=== PATIENT | male | born 1955 | race Caucasian/White ===

== ENCOUNTER 2018-04-22 10:48 | Emergency (ER) | payer BC ==
[2018-04-22 11:18] VITALS: BP 192/88
[2018-04-22] MEDS ORDERED: Acetaminophen TAB* 325 MG PO ONE (11:23)
--- NOTE | 2018-04-22 11:29 | UC ---
Truncal Trauma HPI - HPI Summary HPI Summary: patient was carrying metal pipe, slipped on the ice and landed on his back on the pipes. he has pain along the postierior right ribs. states he is not peeing blood or coughing up blood like he did with his last fall. hx of multiple rib fractures in the past. ihe did take an aleve at time of incident. appears to be in pain. - History Of Current Complaint Chief Complaint: UCBackPain Stated Complaint: S/P FALL-LOWER BACK PAIN Time Seen by Provider: 04/22/18 11:19 Hx Obtained From: Patient Onset/Duration: Sudden Onset, Lasting Hours Onset Of Pain: Immediate Severity Initially: Moderate Severity Currently: Moderate Pain Intensity: 5 Mechanism Of Injury: Fall From A Standing Position, Twisted Aggravating Factor(s): Nothing Alleviating factor(s): Nothing - Allergies/Home Medications Allergies/Adverse Reactions: Allergies Allergy/AdvReac Type Severity Reaction Status Date / Time Penicillins Allergy Severe Hives Verified 04/22/18 11:06 Tetracyclines Allergy Hives Verified 04/22/18 11:06 somyacin Allergy Hives Uncoded 04/22/18 11:06 Home Medications: Home Medications Naproxen Sodium [Aleve] 220 mg PO ONCE PRN 04/22/18 [History Confirmed 04/22/18] PMH/Surg Hx/FS Hx/Imm Hx Previously Healthy: Yes - Surgical History Surgical History: Yes Surgery Procedure, Year, and Place: [facility]ERNIA - Family History Known Family History: Positive: Hypertension - Social History Alcohol Use: None Substance Use Type: None Smoking Status (MU): Former Smoker Length of Time of Smoking/Using Tobacco: 33 yrs Review of Systems All Other Systems Reviewed And Are Negative: Yes Constitutional: Positive: Negative Skin: Positive: Negative Eyes: Positive: Negative ENT: Positive: Negative Respiratory: Positive: Negative Cardiovascular: Positive: Negative Gastrointestinal: Positive: Negative Genitourinary: Positive: Negative Motor: Positive: Negative Neurovascular: Positive: Negative Musculoskeletal: Positive: Arthralgia, Myalgia Neurological: Positive: Negative Psychological: Positive: Negative Is Patient Immunocompromised?: No Physical Exam Triage Information Reviewed: Yes Appearance: Well-Appearing, Well-Nourished, Pain Distress Vital Signs: Initial Vital Signs Temp 99.2 F 04/22/18 11:08 Pulse 80 04/22/18 11:08 Resp 24 04/22/18 11:08 BP 192/88 04/22/18 11:08 Pulse Ox 96 04/22/18 11:08 Vital Signs Reviewed: Yes Eye Exam: Normal ENT Exam: Normal ENT: Positive: Pharyngeal erythema, TMs normal Dental Exam: Normal Neck exam: Normal Respiratory Exam: Normal Respiratory: Positive: Chest non-tender, Lungs clear, Normal breath sounds Cardiovascular Exam: Normal Cardiovascular: Positive: RRR, No Murmur, Pulses Normal Abdominal Exam: Normal Abdomen Description: Positive: Nontender, No Organomegaly, Soft Bowel Sounds: Positive: Present Musculoskeletal: Positive: Strength Intact, No Edema, ROM Limited @ - in twisting and bending of trunk Neurological Exam: Normal Psychological Exam: Normal Skin Exam: Normal Truncal Trauma Course/Dx - Course Course Of Treatment: hx obtained, exam performed ,meds reviewed, tylenol given for pain, UA performed to watch for hematuria, rib xrays obtained, fracture of 10th rib noted, - Differential Dx/Diagnosis Differential Diagnosis/HQI/PQRI: Chest Wall Contusion, Hepatic Trauma, Pneumothorax, Rib Fracture Provider Diagnosis: Fracture of one rib, right side, initial encounter for closed fracture Discharge - Sign-Out/Discharge Documenting (check all that apply): Patient Departure All imaging exams completed and their final reports reviewed: Yes - Discharge Plan Condition: Stable Disposition: HOME Prescriptions: Cyclobenzaprine TAB* [Flexeril 10 MG TAB*] 10 mg PO TID PRN #15 tab PRN Reason: Spasms Patient Education Materials: Rib Fracture (ED) Referrals: Wyatt Chang MD [Primary Care Provider] - Additional Instructions: 1. ice the areas on and off today. continue with the aleve twice a day and tylenol 1000 mg every 8 hours for the next few days for pain control. 2. Make yourself take nice deep breaths to keep the lungs expanding. 3. Take the flexeril as needed for muscle spasm 4. Tomorrow after noon start heating the area to help maintain mobility and follow up if you develop any difficulty breathing. - Billing Disposition and Condition Condition: STABLE Disposition: Home - Attestation Statements Provider Attestation: Per institutional requirements, I have reviewed the chart, however, I was not consulted specifically or made aware of this patient by the midlevel provider. I did not personally evaluate, interact with , or disposition this patient.
== END 2018-04-22 12:03 | disposition home or self-care (01) ==
LOC: UCCORT 10:48
DX: S22.31XA Fracture of one rib, right side, initial encounter for closed fracture (principal); Z88.0 Allergy status to penicillin; Z88.1 Allergy status to other antibiotic agents; Z87.891 Personal history of nicotine dependence; W00.0XXA Fall on same level due to ice and snow, initial encounter; Y92.9 Unspecified place or not applicable
CPT/HCPCS: 81003; 99202; A9270-GY; G0463

== ENCOUNTER 2018-09-19 08:40 | Emergency (ER) | payer BC ==
[2018-09-19 08:48] VITALS: BP 187/98
--- NOTE | 2018-09-19 09:33 | UC ---
Ear Complaint HPI - HPI Summary HPI Summary: 62-year-old male presents with 2-3 week history of progressive hearing loss in his right ear. States he has a history of cerumen impaction that has required irrigation to clear. Denies fever, chills, ear pain, ear drainage, tinnitus, vertigo, nasal congestion, runny nose, sore throat, or cough. - History of Current Complaint Chief Complaint: UCEar Stated Complaint: RT EAR COMPLAINT Time Seen by Provider: 09/19/18 09:06 Hx Obtained From: Patient Pain Intensity: 0 - Allergies/Home Medications Allergies/Adverse Reactions: Allergies Allergy/AdvReac Type Severity Reaction Status Date / Time Penicillins Allergy Severe Hives Verified 09/19/18 08:48 Tetracyclines Allergy Hives Verified 09/19/18 08:48 somyacin Allergy Hives Uncoded 09/19/18 08:48 Home Medications: Home Medications NK [No Home Medications Reported] 09/19/18 [History Confirmed 09/19/18] PMH/Surg Hx/FS Hx/Imm Hx Cardiovascular History: Hypertension - Surgical History Surgical History: Yes Surgery Procedure, Year, and Place: HERNIA - Family History Known Family History: Positive: Hypertension - Social History Occupation: Employed Full-time Lives: With Family Alcohol Use: None Substance Use Type: None Smoking Status (MU): Former Smoker Length of Time of Smoking/Using Tobacco: 33 yrs Review of Systems All Other Systems Reviewed And Are Negative: Yes Constitutional: Negative: Fever, Chills Eyes: Negative: Drainage, Eye Redness ENT: Negative: Sore Throat, Ear Ache, Nasal Discharge, Sinus Congestion, Sinus Pain/Tenderness Respiratory: Negative: Cough Cardiovascular: Positive: Negative Gastrointestinal: Positive: Negative Genitourinary: Positive: Negative Musculoskeletal: Positive: Negative Neurological: Positive: Negative Is Patient Immunocompromised?: No Physical Exam - Summary Physical Exam Summary: GENERAL APPEARANCE: Well developed, well nourished, alert and cooperative, and appears to be in no acute distress. EYES: Conjunctiva clear. No drainage. EARS: Bilateral external auditory canals with cerumen impaction. NOSE: No nasal discharge. THROAT: Pharynx normal. No tonsilar inflammation, swelling, exudate, or lesions. Uvula midline. NECK: Neck supple, non-tender without lymphadenopathy. CARDIAC: Normal S1 and S2. No S3, S4 or murmurs. Rhythm is regular. There is no peripheral edema, cyanosis or pallor. Extremities are warm and well perfused. Capillary refill is less than 2 seconds. Peripheral pulses intact. LUNGS: Clear to auscultation without rales, rhonchi, wheezing or diminished breath sounds. ABDOMEN: Positive bowel sounds. Soft, nondistended, nontender. No guarding or rebound. No masses or hepatosplenomegally. MUSKULOSKELETAL: ROM intact to all extremities. No joint erythema or tenderness. Normal muscular development. Normal gait. SKIN: Skin normal color, texture and turgor with no lesions or eruptions. Triage Information Reviewed: Yes Vital Signs: Initial Vital Signs Temp 98.3 F 09/19/18 08:45 Pulse 77 09/19/18 08:45 Resp 15 09/19/18 08:45 BP 187/98 09/19/18 08:45 Pulse Ox 99 09/19/18 08:45 Vital Signs Reviewed: Yes Re-Evaluation - Re-Evaluation First Eval Re-Evaluation Time: 09:56 Change: Improved Comment: Post irrigation patient reports improved hearing. Bilateral external auditory canals were clear with intact, opaque TMs with good couple of light. Ear Complaint Course/Dx - Course Course Of Treatment: 62-year-old male presents with 2-3 week history of progressive hearing loss in his right ear. States he has a history of cerumen impaction that has required irrigation to clear. Denies fever, chills, ear pain, ear drainage, tinnitus, vertigo, nasal congestion, runny nose, sore throat, or cough. Afebrile. Hypertensive otherwise vital signs stable. Patient had bilateral cerumen impaction and otherwise unremarkable exam. The RN irrigated the bilateral external auditory canals and was able to remove a large amount of hard cerumen. Post-irrigation exam showed clear bilateral external auditory canals with intact, opaque TMs with good cone of light. Patient is to follow-up with his primary care provider as needed. Anticipatory guidance and warning symptoms were reviewed with the patient. Verbalizes understanding and agrees with plan of care. - Differential Dx/Diagnosis Provider Diagnosis: Bilateral impacted cerumen Discharge - Sign-Out/Discharge Documenting (check all that apply): Patient Departure All imaging exams completed and their final reports reviewed: No Studies - Discharge Plan Condition: Stable Disposition: HOME Patient Education Materials: Cerumen Impaction (ED) Referrals: Wyatt Chang MD [Primary Care Provider] - 3 Days Additional Instructions: We were able to clear the ear wax from your ears. Follow-up with your primary care provider as needed. Seek immediate medical attention if you develop a fever greater than 100.5 F, have bleeding or drainage from the ears, severe ear pain, loss of hearing, or any worsening of symptoms. - Billing Disposition and Condition Condition: STABLE Disposition: Home
== END 2018-09-19 09:59 | disposition home or self-care (01) ==
LOC: UCCORT 08:40
DX: H61.23 Impacted cerumen, bilateral (principal); I10 Essential (primary) hypertension; Z87.891 Personal history of nicotine dependence
CPT/HCPCS: 99213; G0463